=== PATIENT | female | born 1975 | race Caucasian/White ===

== ENCOUNTER 2018-02-09 06:07 | Day surgery (SDC) | payer MEDICARE, MEDICAID, SELFPAY ==
[2018-02-09 06:22] VITALS: BP 150/91; PULSE 80; RESP 18; TEMP 36.5; O2SAT 99
[2018-02-09] MEDS: Lidocaine 1% Pres-Free 5 ML VIAL (07:36)
--- NOTE | 2018-02-09 08:10 | W.PM.DSUDISC ---
Discharge Plan Disposition Patient Disposition: HOME Condition: Good Discharge Details Reason For Visit: ESRD Attending Provider: Tj Caldwell Primary Care Provider: Tita Yadav Home Meds and New Rx's Prescriptions: Continue ziprasidone HCl [Geodon] 80 MG capsule 80 mg PO DIRECTED RF: 0 trazodone 50 MG tablet 150 mg PO HS RF: 0 metoprolol succinate 50 MG tablet extended release 24 hr 12.5 mg PO BID RF: 0 pioglitazone [Actos] 45 MG tablet 15 mg PO DAILY RF: 0 aspirin [Aspirin Low-Strength] 81 MG tablet,chewable 81 mg PO DAILY RF: 0 ziprasidone HCl [Geodon] 40 MG capsule 40 mg PO DAILY AT 4 PM RF: 0 multivitamin [Daily Value] 1 EACH tablet 1 ea PO DAILY RF: 0 calcitriol 0.25 MCG capsule 0.25 mcg PO TID RF: 0 sevelamer carbonate [Renvela] 800 MG tablet 1 tab PO TID RF: 0 ziprasidone HCl [Geodon] 80 MG capsule 120 mg PO HS RF: 0 benztropine 0.5 MG tablet 0.5 mg PO BID RF: 0 ammonium lactate 225 GM lotion 1 applic Topical BID PRN PRNRF: 0 hydrocortisone [Proctozone-HC] 30 GM cream with perineal applicator 1 applic [place] BID PRN PRNRF: 0 docusate sodium [Colace] 100 MG capsule 100 mg PO BID RF: 0 omeprazole 20 MG capsule,delayed release(DR/EC) 20 mg PO DAILY RF: 0 B complex with C#20-folic acid [Renal Caps] 1 CAP capsule 1 mg PO DAILY RF: 0 simvastatin 40 mg Tablet 40 mg PO QPM RF: 0 bupropion HCl 100 mg Tablet 100 mg PO BID RF: 0 Discharge Instructions Additional Instructions: Dr. Tj Caldwell Post-Operative Discharge Instructions 1. Because there will be medication in your system for the next 24 hours, you may feel a little sleepy. Your coordination will be affected. Therefore: Do not drive or operate dangerous equipment for 24 hours. Do not drink alcohol beverages for 24 hours (not even beer). Plan to go home and rest for the day. Restrictions: No baths, you can shower. Let warm soapy water run over wound, then pat wound dry. Activity: The day of surgery spend most of the day resting in a comfortable bed or recliner. 2-3 times during the day get up and walk around the house. The day after surgery, or after your discharge, walk at least 3 times a day and spend increasing amounts of time walking and sitting up. If you are tired rest, but keep moving as able. Continue Incentive Spirometry at home if you were performing this therapy in the hospital. Diet: Resume home diet as tolerated. Start with a light diet, your appetite will improve with time. Drink at least 4-6 glasses of water per day to keep hydrated. Wound Care: Skin glue will wear off in 1-2 weeks You may cover the wound with a dry sterile dressing to keep clothing from rubbing against the wound. Continue all your regular medications unless directed otherwise. Call the office or the [facility] , If you have: Pain not controlled with pain medication. Nausea and vomiting. Temperature greater than 101 degrees Fahrenheit. Drainage from your wound that soaks through your dressing. *No more than 4000 milligrams of Tylenol in 24 hours. Narcotic pain medication can be constipating, if you have not had a bowel movement within 3 days use a laxative, I recommend Milk of Magnesia (MOM) 1oz. every 6 hrs until you have a bowel movement. I understand the above instructions and have no questions. Signature of Patient or Responsible Adult Escort Date/Time Name of Responsible Adult Escort Signature of Nurse Date/Time Revised 07/28/10 Referrals: Tj Caldwell DO [ [facility] STAFF PHYSICIAN] - (Dialysis center will call if follow up is needed) Activity:: Activity as Tolerated Diet:: As Tolerated Discharge Orders Discharge Orders: Discharge Order (Routine); Ordered 02/09/18 Ordered By: Tj Caldwell DS: Diagnosis Discharge Diagnosis (1) End stage renal disease: Status: Acute Asessment and Plan: Dialysis shunt in place (2) Encounter for dialysis catheter care: Status: Acute Asessment and Plan: Dialysis catheter removed
--- NOTE | 2018-02-09 08:13 | PDOC.DSDIS_ITS ---
Discharge Plan Disposition Patient Disposition: HOME Condition: Good Discharge Details Reason For Visit: ESRD Attending Provider: Tj Caldwell Primary Care Provider: Tita Yadav Home Meds and New Rx's Prescriptions: Continue ziprasidone HCl [Geodon] 80 MG capsule 80 mg PO DIRECTED RF: 0 trazodone 50 MG tablet 150 mg PO HS RF: 0 metoprolol succinate 50 MG tablet extended release 24 hr 12.5 mg PO BID RF: 0 pioglitazone [Actos] 45 MG tablet 15 mg PO DAILY RF: 0 aspirin [Aspirin Low-Strength] 81 MG tablet,chewable 81 mg PO DAILY RF: 0 ziprasidone HCl [Geodon] 40 MG capsule 40 mg PO DAILY AT 4 PM RF: 0 multivitamin [Daily Value] 1 EACH tablet 1 ea PO DAILY RF: 0 calcitriol 0.25 MCG capsule 0.25 mcg PO TID RF: 0 sevelamer carbonate [Renvela] 800 MG tablet 1 tab PO TID RF: 0 ziprasidone HCl [Geodon] 80 MG capsule 120 mg PO HS RF: 0 benztropine 0.5 MG tablet 0.5 mg PO BID RF: 0 ammonium lactate 225 GM lotion 1 applic Topical BID PRN PRNRF: 0 hydrocortisone [Proctozone-HC] 30 GM cream with perineal applicator 1 applic [place] BID PRN PRNRF: 0 docusate sodium [Colace] 100 MG capsule 100 mg PO BID RF: 0 omeprazole 20 MG capsule,delayed release(DR/EC) 20 mg PO DAILY RF: 0 B complex with C#20-folic acid [Renal Caps] 1 CAP capsule 1 mg PO DAILY RF: 0 simvastatin 40 mg Tablet 40 mg PO QPM RF: 0 bupropion HCl 100 mg Tablet 100 mg PO BID RF: 0 Discharge Instructions Additional Instructions: Dr. Tj Caldwell Post-Operative Discharge Instructions 1. Because there will be medication in your system for the next 24 hours, you may feel a little sleepy. Your coordination will be affected. Therefore: * Do not drive or operate dangerous equipment for 24 hours. * Do not drink alcohol beverages for 24 hours (not even beer). * Plan to go home and rest for the day. Restrictions: * No baths, you can shower. Let warm soapy water run over wound, then pat wound dry. Activity: * The day of surgery spend most of the day resting in a comfortable bed or recliner. 2-3 times during the day get up and walk around the house. * The day after surgery, or after your discharge, walk at least 3 times a day and spend increasing amounts of time walking and sitting up. If you are tired rest, but keep moving as able. * Continue Incentive Spirometry at home if you were performing this therapy in the hospital. Diet: * Resume home diet as tolerated. * Start with a light diet, your appetite will improve with time. * Drink at least 4-6 glasses of water per day to keep hydrated. Wound Care: * Skin glue will wear off in 1-2 weeks * You may cover the wound with a dry sterile dressing to keep clothing from rubbing against the wound. Continue all your regular medications unless directed otherwise. Call the office or the [facility] , If you have: * Pain not controlled with pain medication. * Nausea and vomiting. * Temperature greater than 101 degrees Fahrenheit. * Drainage from your wound that soaks through your dressing. *No more than 4000 milligrams of Tylenol in 24 hours. Narcotic pain medication can be constipating, if you have not had a bowel movement within 3 days use a laxative, I recommend Milk of Magnesia (MOM) 1oz. every 6 hrs until you have a bowel movement. I understand the above instructions and have no questions. _ Signature of Patient or Responsible Adult Escort Date/Time _ Name of Responsible Adult Escort _ Signature of Nurse Date/Time Revised 07/28/10 Referrals: Tj Caldwell DO [ [facility] STAFF PHYSICIAN] - (Dialysis center will call if follow up is needed) Activity:: Activity as Tolerated Diet:: As Tolerated Discharge Orders Discharge Orders: Discharge Order (Routine); Ordered 02/09/18 Ordered By: Tj Caldwell DS: Diagnosis Discharge Diagnosis (1) End stage renal disease: Status: Acute Asessment and Plan: Dialysis shunt in place (2) Encounter for dialysis catheter care: Status: Acute Asessment and Plan: Dialysis catheter removed
--- NOTE | 2018-02-09 08:14 | ROE_ITS ---
Date of service: 02/09/18 Time of Service: 08:13 Operative Note DATE OF PROCEDURE: 02/09/18 PRE-OP DIAGNOSIS: End-stage renal disease POST-OP DIAGNOSIS: same PROCEDURE: Removal of dialysis catheter SURGEON: Tj Caldwell ANESTHESIA: local (1% lidocaine with half percent Marcaine with epinephrine) ESTIMATED BLOOD LOSS: 1 PATHOLOGY: none sent COMPLICATIONS: None Patient was transported to: same day Patient's condition: stable Indications: 42-year-old woman with end-stage renal disease on hemodialysis. She initially was started on hemodialysis using permacath dialysis catheter. She has since had a dialysis shunt placed in her left upper arm and it is mature and being used for dialysis currently. She is presenting for removal of her dialysis catheter. The risk of the procedure has been discussed with her, and all questions answered to her satisfaction. Consents been obtained to proceed with dialysis catheter removed. Findings: Permacath dialysis catheter removed from the right chest catheter was intact at time of removal. Procedure Description: Patient was brought to the operating room, and positioned supine. Monitoring for telemetry, O2 saturation, and blood pressure. An appropriate timeout was taken reviewing the patient's identification, allergies, medications, procedure , and site. She was then repositioned with the torso flexed 30 degrees. The right upper chest was prepped with ChloraPrep and block draped in standard sterile fashion. A field block was established by infiltrating local around the skin insertion site for the catheter and following the catheters tunnel up to the clavicle. I began by gently dilating the skin opening using mosquito scissors for blunt dissection and sharp. The catheter cuff was was proximal to the skin opening. Again using the mosquito scissors for blunt and sharp dissection I circumferentially freed up the cuff from the surrounding tissue. I did make a 3 -4 mm perpendicular cut into the skin around the catheter for better exposure of the cuff. Once the cuff was circumferentially dissected, I applied gentle pressure and was able to free up the catheter from the tunnel and pull it out intact. I applied pressure to the dialysis catheter tunnel for several minutes inspected the skin exit site and there is no evidence of bleeding. I then placed skin affix skin glue over the wound. There are no complications during the case the patient tolerated very well she was brought to day surgery recovery area in good condition.
== END 2018-02-09 08:55 | disposition home or self-care (01) ==
PROVIDERS: PCP Nurse Practitioner Family; Visit Provider Surgery
PROC: (CPT 36590; principal; 2018-02-09 07:30)
DX: N18.6 End stage renal disease (principal); Z45.2 Encounter for adjustment and management of vascular access device; E11.9 Type 2 diabetes mellitus without complications; I10 Essential (primary) hypertension; F17.210 Nicotine dependence, cigarettes, uncomplicated
CPT/HCPCS: 36590

== ENCOUNTER 2018-03-10 09:14 | Emergency (ER) | payer MEDICARE, MEDICAID, SELFPAY ==
--- NOTE | 2018-03-10 09:15 | ED.GENADUL_ITS ---
Discharge Plan Disposition Patient Disposition: HOME Condition: Stable Discharge Details Chief Complaint: Orthopedic Clinical Impression: Foot injury Reason For Visit: FRANKI Primary Care Provider: Tita Yadav ED Provider: Berenice Velázquez Home Meds and New Rx's Prescriptions: Continue ziprasidone HCl [Geodon] 80 MG capsule 80 mg PO DIRECTED RF: 0 trazodone 50 MG tablet 150 mg PO HS RF: 0 metoprolol succinate 50 MG tablet extended release 24 hr 12.5 mg PO BID RF: 0 pioglitazone [Actos] 45 MG tablet 15 mg PO DAILY RF: 0 aspirin [Aspirin Low-Strength] 81 MG tablet,chewable 81 mg PO DAILY RF: 0 ziprasidone HCl [Geodon] 40 MG capsule 40 mg PO DAILY AT 4 PM RF: 0 multivitamin [Daily Value] 1 EACH tablet 1 ea PO DAILY RF: 0 calcitriol 0.25 MCG capsule 0.25 mcg PO TID RF: 0 sevelamer carbonate [Renvela] 800 MG tablet 1 tab PO TID RF: 0 ziprasidone HCl [Geodon] 80 MG capsule 120 mg PO HS RF: 0 benztropine 0.5 MG tablet 0.5 mg PO BID RF: 0 ammonium lactate 225 GM lotion 1 applic Topical BID PRN PRNRF: 0 hydrocortisone [Proctozone-HC] 30 GM cream with perineal applicator 1 applic [place] BID PRN PRNRF: 0 docusate sodium [Colace] 100 MG capsule 100 mg PO BID RF: 0 omeprazole 20 MG capsule,delayed release(DR/EC) 20 mg PO DAILY RF: 0 B complex with C#20-folic acid [Renal Caps] 1 CAP capsule 1 mg PO DAILY RF: 0 simvastatin 40 mg Tablet 40 mg PO QPM RF: 0 bupropion HCl 100 mg Tablet 100 mg PO BID RF: 0 Discharge Instructions Instructions: Contusion in Adults (ED) Additional Instructions: Please return immediately to the emergency department if you develop any new or worsening symptoms or if you become otherwise concerned. It is extremely important that you go directly to dialysis today and do not skip your dialysis treatment. Is also extremely important that you follow-up with your primary care doctor in 1-2 weeks. Referrals: Tita Yadav [Primary Care Provider] - Discharge Data Discharge Date/Time-TO BE ENTERED AT DEPARTURE: 03/10/18 10:52 Medical Decision Making Rolanda Pena is a 42 y/o with history of nonsignificant diabetes, hypertension , high cholesterol, end-stage renal disease on dialysis, schizophrenia who presented to the emergency department with foot pain after playing her foot into a wall accidentally last night. She has been walking at home since the injury with a mild amount of pain. On exam patient is well and nontoxic appearing. Normal work of breathing, lungs are clear to auscultation. There is no skin signs of trauma over the left foot. She has tenderness palpation over the left third and fourth MTP joints without edema. Foot is neurovascularly intact. Low suspicion for fracture, but will obtain x-ray. I had a lengthy discussion with patient regarding importance of attending dialysis as scheduled and the risk that she could or become critically ill from not going to dialysis as scheduled. Patient reports that she does not feel like sitting in a chair today and will go on Wednesday. Dialysis center was contacted, who reported that patient does have scheduled appointment for Wednesday, but that she also may go to dialysis today directly from the emergency department. Dialysis center reported that patient frequently skips dialysis appointments, although she did attend 2 days ago on Wednesday. Pt was again encouraged to go to dialysis today. Exam/history is not consistent with acute emergent volume overload or electrolyte/metabolic derangement. Patient has decision-making capacity. Lengthy discussion patient regarding return to emergency department cautions, importance of outpatient follow-up with her PCP, and importance of attending dialysis as scheduled. I did contact patient's PCPs office to let them know that patient has been intermittently missing dialysis, for further outpatient evaluation and possible home health or other intervention at home. They will see patient in follow-up. Medical Records Medical records reviewed: Yes I reviewed the patient's medical records. Imaging Data Radiologic Study: Attestation: I personally reviewed and interpreted this imaging study as follows: Radiologist's impression: Left foot per radiology: Possible old left fifth metatarsal fracture, no acute findings HPI General Mode of arrival: EMS . Date/Time Provider Initiated Documentation: 03/10/18 09:14 . Limitations to Documentation: no limitations . Information obtained by: patient, RN notes reviewed and old records reviewed . HPI Narrative: Rolanda Pena is a 42 y/o woman with [id number] diabetes, hypertension, high cholesterol, end-stage renal disease on dialysis, schizophrenia presenting to the emergency department with foot pain. Patient reports that last night she was walking when she banged lateral side of her left foot into a wall. After that she took a step and heard a crack. Patient has had mild continued pain in the distal aspect of her left foot. Patient denies any other injury or pain. She did not fall last night at the time of the injury. Patient denies shortness of breath, cough, fevers, vomiting, numbness/tingling, weakness, recent illness. She has been feeling well in her usual state of health. Patient has dialysis Wednesday, , Wednesday. She last had dialysis 2 days ago on 03/08/18, and was scheduled to attend dialysis this morning. Patient reports that she does not feel like going to dialysis today and will instead go on Wednesday. No recent illnesses. No recent travel. Has been taking her medications as prescribed. Related Data Home Medications Medication Instructions Recorded Confirmed aspirin [Aspirin Low-Strength] 81 mg PO DAILY tab-cap 09/19/12 03/10/18 metoprolol succinate 12.5 mg PO BID tab-cap 09/19/12 03/10/18 pioglitazone [Actos] 15 mg PO DAILY tab-cap 09/19/12 03/10/18 trazodone 150 mg PO HS tab-cap 09/19/12 03/10/18 ziprasidone HCl [Geodon] 40 mg PO DAILY AT 4 PM tab-cap 09/19/12 03/10/18 ziprasidone HCl [Geodon] 80 mg PO DIRECTED tab-cap 09/19/12 03/10/18 ammonium lactate 1 applic TOPICAL BID PRN PRN 04/18/17 03/10/18 benztropine 0.5 mg PO BID 04/18/17 03/10/18 docusate sodium [Colace] 100 mg PO BID 04/18/17 03/10/18 hydrocortisone [Proctozone-HC] 1 applic [place] BID PRN PRN 04/18/17 03/10/18 omeprazole 20 mg PO DAILY 04/18/17 03/10/18 ziprasidone HCl [Geodon] 120 mg PO HS 04/18/17 03/10/18 B complex with C#20-folic acid 1 mg PO DAILY 09/09/17 03/10/18 [Renal Caps] calcitriol 0.25 mcg PO TID 10/26/17 03/10/18 multivitamin [Daily Value] 1 ea PO DAILY 10/26/17 03/10/18 sevelamer carbonate [Renvela] 1 tab PO TID 10/26/17 03/10/18 bupropion HCl 100 mg PO BID 02/04/18 03/10/18 simvastatin 40 mg PO QPM 02/04/18 03/10/18 Allergies Allergy/AdvReac Type Severity Reaction Status Date / Time morphine Allergy Itching Unverified 03/10/18 09:27 ciprofloxacin [From Cipro] AdvReac Nausea Unverified 03/10/18 09:29 lisinopril AdvReac Unverified 03/10/18 09:27 BANANAS AdvReac Uncoded 03/10/18 09:27 CABBAGE AdvReac Uncoded 03/10/18 09:27 ORANGES AdvReac Uncoded 03/10/18 09:27 POLLEN AdvReac SLEEPY Uncoded 03/10/18 09:27 Review of Systems Review of Systems Constitutional: denies fevers Eyes: denies eye pain ENT: denies facial pain, dental pain, sore throat Cardiovascular: denies chest pain, edema Respiratory: denies SOB, cough GI: denies abdominal pain, vomiting, diarrhea : denies flank pain MSK: denies back pain, neck pain, arthralgias, reports foot pain Skin: denies rash Neuro: denies headaches, lightheadedness, weakness PFSH Surgical procedure, elective (Resolved 02/09/18) Auditory hallucinations CRF Diabetes II, w/ unspec. complications Epilepsy, Unspec., not intractable FX greater tuberosity humerus, L shoulder HX of DVT Hyperlipidemia Hypertention Kidney Chronic Disease, Unspecified Morbid obesity Other Specified Developmental Delay Proteinuria Psoriasis, other Recurrent hyperkalemia Recurring Depression Psychosis Tobacco abuse disorder Nephrectomy RUSS BSO Medical History Surgical procedure, elective (Resolved 02/09/18) Auditory hallucinations CRF Diabetes II, w/ unspec. complications Epilepsy, Unspec., not intractable FX greater tuberosity humerus, L shoulder HX of DVT Hyperlipidemia Hypertention Kidney Chronic Disease, Unspecified Morbid obesity Other Specified Developmental Delay Proteinuria Psoriasis, other Recurrent hyperkalemia Recurring Depression Psychosis Tobacco abuse disorder Social History Smoking/Tobacco Use Status: Current every day Surgical History Nephrectomy RUSS BSO Social History Smoking/Tobacco Use Status: Current every day Exam Narrative Exam Narrative: Constitutional: well and [id number], pleasant, conversing normally HENT: head atraumatic, normocephalic normal inspection, mucous membranes moist Eyes: conjunctiva normal, sclera normal, pupils 3mm b/l Neck: no stridor, normal ROM, trachea midline Chest: normal inspection Resp: normal work of breathing, LCTAB Cardio: normal rate, normal rhythm, no murmur appreciated Back: normal inspection, no rash Skin: warm, dry, normal color, no rash Neuro: alert&Ox3, grossly non-focal, normal tone Ext: +1 pitting edema b/l, Pt reports as chronic and unchanged, mild TTP plantar aspect left 3rd, 4th MTP joint, feet WWP, DP pulses intact, no skin signs of trauma, ranging toes normally Psych: normal mood, normal affect, normal behavior
[2018-03-10 09:17] VITALS: BP 127/57; PULSE 75; RESP 17; TEMP 37; O2SAT 94
--- NOTE | 2018-03-10 10:16 | DI.RAD_ITS ---
SYMPTOM/DIAGNOSIS: TRAUMA, LEFT FOOT PAIN LEFT FOOT: There is slight deformity of the distal shaft of the 5th metatarsal which has the appearance of an old healed fracture. No acute fracture or dislocation is seen. The joint spaces are well maintained. Vascular calcifications are seen. There are small heel spurs. IMPRESSION: Old fracture of the 5th metatarsal. No acute abnormality.
[2018-03-10 10:47] VITALS: PULSE 72; RESP 16; TEMP 37.2
== END 2018-03-10 10:52 | disposition home or self-care (01) ==
LOC: ER 11:04
PROVIDERS: Emergency Provider Student in an Organized Health Care Education/Training Program; PCP Nurse Practitioner Family
DX: M79.672 Pain in left foot (principal); I12.0 Hypertensive chronic kidney disease with stage 5 chronic kidney disease or end stage renal disease; E11.9 Type 2 diabetes mellitus without complications; N18.6 End stage renal disease; Z99.2 Dependence on renal dialysis
CPT/HCPCS: 99283; 73630; 99282

== ENCOUNTER 2018-05-20 10:58 | Outpatient (CLI) | payer MEDICARE, MEDICAID, SELFPAY ==
[2018-05-20 12:04] LABS: Abs Immature Grans 0.07 k/cumm (0.0-0.09); Absolute Basophil Count 0.05 k/cumm (0.0-0.2); Absolute Eosinophil Count 0.23 k/cumm (0.0-0.7); Absolute Lymphocyte Count 1.76 k/cumm (1.2-3.4); Absolute Monocyte Count 0.72 k/cumm (0.11-0.7); Basophils % 0.6; Eosinophils % 2.9; HCT 36.1 % (36.0-46.0); Immature Grans % 0.9; Lymphocytes % 22.2; Mean Corp. HGB Concentration 33.2 g/dL (32.0-36.0); Mean Corpuscular Hemoglobin 34.1 pg (27.0-33.0); Mean Corpuscular Volume 102.6 fL (80-95); Mean Platelet Volume 9.4 fL (8.0-11.0); Monocytes % 9.1; Neutrophils % 64.3; Platelet Count 203 x1000/uL (130-400); RBC 3.52 m/cumm (4.00-5.20); RBC Distribution Width 14.1 % (11.7-14.6); White Blood Cell Count 7.93 k/cumm (4.4-10.8)
[2018-05-20 12:19] LABS: Hemoglobin A1C 7.2 % (4.5-6.2)
[2018-05-20 13:31] LABS: ALT 28 U/L (12-78); AST 29 U/L (15-37); Albumin 2.8 g/dL (3.4-5.0); Alkaline Phosphatase 149 U/L (46-116); Anion Gap 6.1 mmol/L (3-11); BUN 23 mg/dL (7-18); Bilirubin, Total 0.3 mg/dL (0.2-1.0); CO2 32.9 mmol/L (21.0-32.0); Calcium 8.7 mg/dL (8.5-10.1); Chloride 92 mmol/L (98-107); Cholesterol 145 mg/dL (50-200); Estimated GFR 12.06 (mL/min/1.73m2); Glucose 235 mg/dL (70-100); HDL Cholesterol 61 mg/dL (40-60); LDL CHOLESTEROL 48 mg/dL (<100); Potassium 4.5 mmol/L (3.5-5.1); Sodium 131 mmol/L (136-145); TSH 1.14 uIU/mL (0.358-3.74); Total Protein 6.7 g/dL (6.4-8.2); Triglyceride 222 mg/dL (30-150)
[2018-05-20 13:42] LABS: CREATININE 4.03 mg/dL (0.55-1.02)
== END 2018-05-20 11:18 ==
PROVIDERS: PCP Nurse Practitioner Family; Visit Provider Nurse Practitioner Psychiatric/Mental Health
DX: F25.1 Schizoaffective disorder, depressive type (principal); I10 Essential (primary) hypertension; E11.9 Type 2 diabetes mellitus without complications
CPT/HCPCS: 36415; 80053; 80061; 83721; 83036; 84443; 85025

== ENCOUNTER 2018-07-20 08:21 | Outpatient (CLI) | payer MEDICARE, MEDICAID, SELFPAY ==
--- NOTE | 2018-07-20 08:09 | DI.RAD_ITS ---
SYMPTOMS/DIAGNOSIS: EVALUATE LEFT FOOT PAIN, 4TH AND 5TH TOES LEFT FOOT: Healing fractures of the left 2nd and 3rd metatarsals are identified. There is an apparent minimally displaced subacute fracture involving the distal diaphysis of the 4th metatarsal.
== END 2018-07-20 08:41 ==
PROVIDERS: PCP Nurse Practitioner Family; Referring Provider Nurse Practitioner Family; Visit Provider Student in an Organized Health Care Education/Training Program
DX: S92.342A Displaced fracture of fourth metatarsal bone, left foot, initial encounter for closed fracture; S92.332A Displaced fracture of third metatarsal bone, left foot, initial encounter for closed fracture; S92.322A Displaced fracture of second metatarsal bone, left foot, initial encounter for closed fracture; E11.22 Type 2 diabetes mellitus with diabetic chronic kidney disease; N18.6 End stage renal disease; Z99.2 Dependence on renal dialysis; W22.8XXA Striking against or struck by other objects, initial encounter
CPT/HCPCS: 99203; 99213; L3260; 73630

== ENCOUNTER 2018-08-17 09:47 | Outpatient (CLI) | payer MEDICARE, MEDICAID, SELFPAY ==
--- NOTE | 2018-08-17 09:45 | DI.RAD_ITS ---
SYMPTOM/DIAGNOSIS: F/U FX LEFT FOOT: Three views were obtained and again show healing fractures of the second through fourth metatarsals with no gross interval change in alignment of the fracture fragments in comparison with the examination of 07/20.
== END 2018-08-17 10:07 ==
PROVIDERS: PCP Nurse Practitioner Family; Referring Provider Nurse Practitioner Family; Visit Provider Student in an Organized Health Care Education/Training Program
DX: M79.672 Pain in left foot (principal); S92.322D Displaced fracture of second metatarsal bone, left foot, subsequent encounter for fracture with routine healing; S92.332D Displaced fracture of third metatarsal bone, left foot, subsequent encounter for fracture with routine healing; S92.342D Displaced fracture of fourth metatarsal bone, left foot, subsequent encounter for fracture with routine healing; X58.XXXD Exposure to other specified factors, subsequent encounter
CPT/HCPCS: 99212; 73630

== ENCOUNTER 2018-09-21 09:58 | Outpatient (CLI) | payer MEDICARE, MEDICAID, SELFPAY ==
--- NOTE | 2018-09-21 09:55 | DI.RAD_ITS ---
SYMPTOMS/DIAGNOSIS: F/U FRACTURE LEFT FOOT: Progressive healing of fractures of the second, third and fourth metatarsals is demonstrated with no change in alignment. There is nothing to suggest that healing is not progressing satisfactorily at the present time.
== END 2018-09-21 10:18 ==
PROVIDERS: PCP Nurse Practitioner Family; Referring Provider Nurse Practitioner Family; Visit Provider Student in an Organized Health Care Education/Training Program
DX: M79.672 Pain in left foot (principal); S92.322A Displaced fracture of second metatarsal bone, left foot, initial encounter for closed fracture; S92.332A Displaced fracture of third metatarsal bone, left foot, initial encounter for closed fracture; S92.342A Displaced fracture of fourth metatarsal bone, left foot, initial encounter for closed fracture; X58.XXXA Exposure to other specified factors, initial encounter; I12.9 Hypertensive chronic kidney disease with stage 1 through stage 4 chronic kidney disease, or unspecified chronic kidney disease; N18.9 Chronic kidney disease, unspecified; E11.22 Type 2 diabetes mellitus with diabetic chronic kidney disease
CPT/HCPCS: 99213; 73630

== ENCOUNTER 2018-12-17 08:07 | Emergency (ER) | payer MEDICARE, MEDICAID, SELFPAY ==
[2018-12-17] VITALS (11 sets, daily range): BP systolic 113–135; BP diastolic 49–63; PULSE 67–74; RESP 13–29; TEMP 36.4–36.6; O2SAT 98–99
--- NOTE | 2018-12-17 08:25 | W.ED.GENAD ---
Discharge Plan Discharge Details Chief Complaint: Vascular Primary Care Provider: Kitty Real ED Provider: Manas Velázquez Home Meds and New Rx's Prescriptions: No Action ziprasidone HCl [Geodon] 80 MG capsule 80 mg PO DIRECTED RF: 0 trazodone 50 MG tablet 150 mg PO HS RF: 0 metoprolol succinate 50 MG tablet extended release 24 hr 12.5 mg PO BID RF: 0 pioglitazone [Actos] 45 MG tablet 15 mg PO DAILY RF: 0 aspirin [Aspirin Low-Strength] 81 MG tablet,chewable 81 mg PO DAILY RF: 0 ziprasidone HCl [Geodon] 40 MG capsule 40 mg PO DAILY AT 4 PM RF: 0 multivitamin [Daily Value] 1 EACH tablet 1 ea PO DAILY RF: 0 calcitriol 0.25 MCG capsule 0.25 mcg PO TID RF: 0 sevelamer carbonate [Renvela] 800 MG tablet 1 tab PO TID RF: 0 ziprasidone HCl [Geodon] 80 MG capsule 120 mg PO HS RF: 0 benztropine 0.5 MG tablet 0.5 mg PO BID RF: 0 ammonium lactate 225 GM lotion 1 applic Topical BID PRN PRNRF: 0 hydrocortisone [Proctozone-HC] 30 GM cream with perineal applicator 1 applic [place] BID PRN PRNRF: 0 docusate sodium [Colace] 100 MG capsule 100 mg PO BID RF: 0 omeprazole 20 MG capsule,delayed release(DR/EC) 20 mg PO DAILY RF: 0 Renal Caps 1 CAP capsule 1 mg PO DAILY RF: 0 simvastatin 40 mg Tablet 40 mg PO QPM RF: 0 bupropion HCl 100 mg Tablet 100 mg PO BID RF: 0 Discharge Data Discharge Date/Time-TO BE ENTERED AT DEPARTURE: 12/17/18 09:08 Medical Decision Making 8:20 --43-year-old female with end-stage renal disease on hemodialysis, sent from dialysis clinic with graft access infiltration, 1 L of saline infiltrated into soft tissue of left upper extremity and left anterior chest, with concern for chest discomfort. I suspect her chest discomfort secondary to the heavy volume of fluid in the soft tissue of her left anterior chest and left upper extremity. 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 --Screening ECG was performed by nursing and reviewed and interpreted by me: Sinus rhythm 71 bpm, normal axis, no STEMI, nondiagnostic. 8:35 -- Spoke with Sunshine (nephrology at [facility]) and Dr. Bruce () will accept patient in transfer. Labs pending at time of transfer. HPI General Mode of arrival: ambulatory. Date/Time Provider Initiated Documentation: 12/17/18 08:15. Limitations to Documentation: no limitations. Information obtained by: patient. HPI Narrative: 43-year-old female with end-stage renal disease on hemodialysis through left upper extremity graft, here after being sent from dialysis with complaint of chest discomfort. Currently patient was feeling well, having dialysis as usual, she completed 2 hours of dialysis, she was then receiving a liter of saline through graft access and access infiltrated. It appears she received a large volume of fluid into her soft tissue left upper extremity and into her left anterior chest. When this occurred, she developed chest discomfort in the area. She specifically notes it feels swollen. Symptoms are moderate. No modifiers. There is also a note that she was hypotensive at some point post dialysis. Apparently there was an issue with mild infiltration during dialysis a couple weeks ago. Related Data Home Medications Medication Instructions Recorded Confirmed aspirin [Aspirin Low-Strength] 81 mg PO DAILY tab-cap 09/19/12 12/17/18 metoprolol succinate 12.5 mg PO BID tab-cap 09/19/12 12/17/18 pioglitazone [Actos] 15 mg PO DAILY tab-cap 09/19/12 12/17/18 trazodone 150 mg PO HS tab-cap 09/19/12 12/17/18 ziprasidone HCl [Geodon] 40 mg PO DAILY AT 4 PM tab-cap 09/19/12 09/21/18 ziprasidone HCl [Geodon] 80 mg PO DIRECTED tab-cap 09/19/12 09/21/18 ammonium lactate 1 applic TOPICAL BID PRN PRN 04/18/17 12/17/18 benztropine 0.5 mg PO BID 04/18/17 12/17/18 docusate sodium [Colace] 100 mg PO BID 04/18/17 12/17/18 hydrocortisone [Proctozone-HC] 1 applic OK BID PRN PRN 04/18/17 09/21/18 omeprazole 20 mg PO DAILY 04/18/17 09/21/18 ziprasidone HCl [Geodon] 120 mg PO HS 04/18/17 09/21/18 Renal Caps 1 mg PO DAILY 09/09/17 12/17/18 calcitriol 0.25 mcg PO TID 10/26/17 12/17/18 multivitamin [Daily Value] 1 ea PO DAILY 10/26/17 12/17/18 sevelamer carbonate [Renvela] 1 tab PO TID 10/26/17 12/17/18 bupropion HCl 100 mg PO BID 02/04/18 12/17/18 simvastatin 40 mg PO QPM 02/04/18 09/21/18 Allergies Allergy/AdvReac Type Severity Reaction Status Date / Time morphine Allergy Itching Unverified 12/17/18 08:50 ciprofloxacin [From Cipro] AdvReac Nausea Unverified 12/17/18 08:50 lisinopril AdvReac Unverified 12/17/18 08:50 BANANAS AdvReac Uncoded 12/17/18 08:50 CABBAGE AdvReac Uncoded 12/17/18 08:50 ORANGES AdvReac Uncoded 12/17/18 08:50 POLLEN AdvReac SLEEPY Uncoded 12/17/18 08:50 General Stated Complaint: Vascular BRENNA: 3 Review of Systems Review of Systems ROS Unobtainable: All systems reviewed & are unremarkable except as noted in HPI and below Constitutional Constitutional: Denies fever(s) Cardiovascular Cardiovascular: Reports as per HPI and Denies dyspnea Respiratory Respiratory: Denies dyspnea PFSH Medical History Auditory hallucinations CRF Diabetes II, w/ unspec. complications Epilepsy, Unspec., not intractable FX greater tuberosity humerus, L shoulder 09/13 HX of DVT 2005 Hyperlipidemia Hypertention Kidney Chronic Disease, Unspecified Morbid obesity Other Specified Developmental Delay Proteinuria Psoriasis, other Recurrent hyperkalemia Recurring Depression Psychosis Surgical procedure, elective (Resolved 02/09/18) dr owens, port-a-cath removal (ESRD) Tobacco abuse disorder Surgical History Nephrectomy Left, 2000 [facility] Social History Smoking/Tobacco Use Status: Current every day Tobacco Type: cigarettes Years smoked: 34 Alcohol Intake: never Drug use: Never Substance use type: does not use Do you feel safe at home: Yes Do you feel safe in your relationship?: Yes Exam Const General: cooperative and no acute distress HENMT Mouth: moist mucous membranes Neck Neck: trachea midline and supple Chest Chest: tenderness (with swelling soft tissue Lt upper chest) Resp Auscultation: clear to auscultation bilaterally, no rales, no rhonchi and no wheezes Cardio Jugular venous pressure: no JVD Rate: regular rate and not tachycardic Rhythm: regular rhythm GI Palpation: soft, not firm, no guarding, not rigid and nontender Skin General skin exam: ecchymosis (mild just proximal to graft access site LUE) Neuro General: alert, awake and tone normal Extrem General: edema Laterality: left (swelling soft tissue proximal LUE) Psych Appearance: grossly normal Mental Status: mental status grossly normal Speech and Movement: speech and movement normal Course Vital Signs Vital signs: Vital Signs Temperature 36.6 C 12/17/18 08:05 Pulse 74 12/17/18 08:05 Respiratory Rate 20 12/17/18 08:05 Blood Pressure 124/49 L 12/17/18 08:05 Temperature 36.6 C 12/17/18 08:05 Temperature Source Skin 12/17/18 08:05 Pulse 74 12/17/18 08:05 Respiratory Rate 20 12/17/18 08:05 Blood Pressure 124/49 L 12/17/18 08:05 Blood Pressure Position Supine 12/17/18 08:05 Oxygen Delivery Method Room Air 12/17/18 08:05 Oxygen Flow Rate 0 12/17/18 08:05 Pain Level 10 12/17/18 08:05 Comment 12/17/18 08:05
== END 2018-12-17 09:08 ==
LOC: ER 09:04
PROVIDERS: Emergency Provider Student in an Organized Health Care Education/Training Program; PCP Nurse Practitioner Family
DX: T82.41XA Breakdown (mechanical) of vascular dialysis catheter, initial encounter (principal); R07.9 Chest pain, unspecified; L98.6 Other infiltrative disorders of the skin and subcutaneous tissue; N18.6 End stage renal disease; I12.9 Hypertensive chronic kidney disease with stage 1 through stage 4 chronic kidney disease, or unspecified chronic kidney disease; Z99.2 Dependence on renal dialysis; E11.22 Type 2 diabetes mellitus with diabetic chronic kidney disease
CPT/HCPCS: 36415; 80053; 93005; 99285; 83735; 84484; 85025; 93010

== ENCOUNTER 2018-12-28 09:49 | Outpatient (CLI) | payer MEDICARE, MEDICAID, SELFPAY ==
--- NOTE | 2018-12-28 10:01 | DI.RAD_ITS ---
EXAM: XR FOOT RT COMPLETE INDICATION: PAIN IN RIGHT FOOT, M79.671. TECHNIQUE: 2D digital imaging was performed. FINDINGS: Healed fracture of the 2nd, 3rd and 4th metatarsals. No acute findings.
== END 2018-12-28 10:09 ==
PROVIDERS: PCP Nurse Practitioner Family; Visit Provider Podiatrist Foot & Ankle Surgery
DX: M79.671 Pain in right foot (principal); Z87.81 Personal history of (healed) traumatic fracture
CPT/HCPCS: 73630

== ENCOUNTER 2019-02-08 13:27 | Emergency (ER) | payer MEDICARE, MEDICAID, SELFPAY ==
[2019-02-08 13:29] VITALS: BP 137/77; PULSE 79; RESP 16; TEMP 36.7; O2SAT 95
--- NOTE | 2019-02-08 14:06 | DI.RAD_ITS ---
EXAM: XR FOOT RT COMPLETE CLINICAL HISTORY: R heel/mid foot pain,? Spur, fx, foreign body TECHNIQUE: Three views were obtained. COMPARISON: XR FOOT RT COMPLETE from 12/28/2018 FINDINGS: There are apparent old healed fractures of 2nd through 4th metatarsal mid shafts. There are mild deg enerative changes seen throughout. No fracture or other acute finding. IMPRESSION: No evidence of acute process
--- NOTE | 2019-02-08 14:07 | ED.GENADUL_ITS ---
Discharge Plan Disposition Patient Disposition: HOME Condition: Stable Discharge Details Chief Complaint: Orthopedic Clinical Impression: Foot pain, right Primary Care Provider: Kitty Real ED Provider: Gabrielle Delgado Home Meds and New Rx's Prescriptions: Continued ziprasidone HCl [Geodon] 80 MG capsule 80 mg PO DIRECTED RF: 0 trazodone 50 MG tablet 150 mg PO HS RF: 0 metoprolol succinate 50 MG tablet extended release 24 hr 12.5 mg PO BID RF: 0 pioglitazone [Actos] 45 MG tablet 15 mg PO DAILY RF: 0 aspirin [Aspirin Low-Strength] 81 MG tablet,chewable 81 mg PO DAILY RF: 0 ziprasidone HCl [Geodon] 40 MG capsule 40 mg PO DAILY AT 4 PM RF: 0 multivitamin [Daily Value] 1 EACH tablet 1 ea PO DAILY RF: 0 calcitriol 0.25 MCG capsule 0.25 mcg PO TID RF: 0 sevelamer carbonate [Renvela] 800 MG tablet 1 tab PO TID RF: 0 metformin 1,000 mg Tablet RF: 0 ziprasidone HCl [Geodon] 80 MG capsule 120 mg PO HS RF: 0 benztropine 0.5 MG tablet 0.5 mg PO BID RF: 0 ammonium lactate 225 GM lotion 1 applic Topical BID PRN PRNRF: 0 hydrocortisone [Proctozone-HC] 30 GM cream with perineal applicator 1 applic [place] BID PRN PRNRF: 0 docusate sodium [Colace] 100 MG capsule 100 mg PO BID RF: 0 omeprazole 20 MG capsule,delayed release(DR/EC) 20 mg PO DAILY RF: 0 Renal Caps 1 CAP capsule 1 mg PO DAILY RF: 0 simvastatin 40 mg Tablet 40 mg PO QPM RF: 0 bupropion HCl 100 mg Tablet 100 mg PO BID RF: 0 Discharge Instructions Instructions: Plantar Fasciitis Exercises (GEN), Plantar Fasciitis (ED), Arthralgia (ED) Additional Instructions: Your x-ray did not note any new fractures or foreign bodies. Your symptoms may be consistent with plantar fasciitis but this diagnosis would require further evaluation by embedded hardware engineer. You were given information regarding plantar fasciitis. Apply ice to the affected area several times daily for 20 minutes at a time. Use a cane to help with weightbearing and ambulation. Wear the Arturo wrap to help with compression and pain. Follow-up with your scheduled appointment with your embedded hardware engineer on Wednesday. Return to the emergency department if you develop any worsening or new concerning symptoms of fever, redness, swelling. Discharge Data Discharge Date/Time-TO BE ENTERED AT DEPARTURE: 02/08/19 15:34 Discharge Physician: Gabrielle Delgado Medical Decision Making 43yo F w/ a h/o ESRD on dialysis, DM, DVT, HLD, schizophrenia, developmental delay, migraines w/ R mid foot pain since yesterday. Triage note stated that she had her foot on a step today but she denies this to me. She denies any known injury. She states the pain is in her right plantar midfoot and heel. She has chronically thick scaling epidermis to bilateral lower extremities which may be associated with her end-stage renal disease. She has tenderness to palpation of her right plantar midfoot and heel without evidence of trauma, infection or obvious foreign body or open wounds. She is neurovascularly intact. A right foot x-ray was obtained to rule out fracture versus foreign body which was negative. There did appear to be a possible heel spur which can be contributing to her pain. Also discussed that patient's symptoms could be due to plantar fasciitis. She has an appointment with her embedded hardware engineer on Wednesday whi ch she is advised to discuss this with him. She is encouraged to return to the ER with any worsening or new concerning symptoms. Medical Records Medical records reviewed: Yes I reviewed the patient's medical records. HPI General Mode of arrival: ambulatory . Date/Time Provider Initiated Documentation: 02/08/19 13:51 . Limitations to Documentation: no limitations . Information obtained by: patient . HPI Narrative: Patient is a 43-year-old female with a history of end-stage renal disease on dialysis, obesity, diabetes, hypertension, hyperlipidemia, migraines, schizophrenia and seizures who presents with right foot pain since yesterday. Patient states the pain is in the arch and heel of her foot. She denies any known injury. Triage note states she hit her foot on a step today but she denies this to me. She denies any fever, body aches, known foreign body. Related Data Home Medications Medication Instructions Recorded Confirmed aspirin [Aspirin Low-Strength] 81 mg PO DAILY tab-cap 09/19/12 02/08/19 metoprolol succinate 12.5 mg PO BID tab-cap 09/19/12 02/08/19 pioglitazone [Actos] 15 mg PO DAILY tab-cap 09/19/12 02/08/19 trazodone 150 mg PO HS tab-cap 09/19/12 02/08/19 ziprasidone HCl [Geodon] 40 mg PO DAILY AT 4 PM tab-cap 09/19/12 02/08/19 ziprasidone HCl [Geodon] 80 mg PO DIRECTED tab-cap 09/19/12 02/08/19 ammonium lactate 1 applic TOPICAL BID PRN PRN 04/18/17 02/08/19 benztropine 0.5 mg PO BID 04/18/17 02/08/19 docusate sodium [Colace] 100 mg PO BID 04/18/17 02/08/19 hydrocortisone [Proctozone-HC] 1 applic ME BID PRN PRN 04/18/17 02/08/19 omeprazole 20 mg PO DAILY 04/18/17 02/08/19 ziprasidone HCl [Geodon] 120 mg PO HS 04/18/17 02/08/19 Renal Caps 1 mg PO DAILY 09/09/17 02/08/19 calcitriol 0.25 mcg PO TID 10/26/17 02/08/19 multivitamin [Daily Value] 1 ea PO DAILY 10/26/17 02/08/19 sevelamer carbonate [Renvela] 1 tab PO TID 10/26/17 02/08/19 bupropion HCl 100 mg PO BID 02/04/18 02/08/19 simvastatin 40 mg PO QPM 02/04/18 09/21/18 metformin mg 02/08/19 Allergies Allergy/AdvReac Type Severity Reaction Status Date / Time morphine Allergy Itching Unverified 02/08/19 13:34 ciprofloxacin [From Cipro] AdvReac Nausea Unverified 02/08/19 13:34 lisinopril AdvReac Unverified 02/08/19 13:34 BANANAS AdvReac Uncoded 02/08/19 13:34 CABBAGE AdvReac Uncoded 02/08/19 13:34 ORANGES AdvReac Uncoded 02/08/19 13:34 POLLEN AdvReac SLEEPY Uncoded 02/08/19 13:34 General Stated Complaint: Orthopedic BRENNA: 4 Review of Systems All systems reviewed & are unremarkable except as noted in HPI and below Constitutional Constitutional: Reports as per HPI, Denies chills and Denies fever(s) Eyes Eyes: Denies blurry vision ENT Ears, Nose, Mouth, and Throat: Denies dizziness, Denies sore throat and Denies throat swelling Cardiovascular Cardiovascular: Denies chest pain and Denies dyspnea Respiratory Respiratory: Denies cough and Denies dyspnea Gastrointestinal Gastrointestinal: Denies abdominal pain, Denies diarrhea and Denies vomiting Genitourinary Genitourinary: Denies hematuria and Denies dysuria Musculoskeletal Musculoskeletal: Denies back pain and Denies numbness Comments: Right foot pain Integumentary/Breasts Skin/Breast: Denies lesions and Denies rash Neurologic Neurologic: Denies dizziness, Denies focal weakness and Denies numbness Allergic/Immunologic Allergic/Immunologic: Denies throat swelling [facility] Medical History Auditory hallucinations CRF Diabetes II, w/ unspec. complications Epilepsy, Unspec., not intractable FX greater tuberosity humerus, L shoulder 09/13 HX of DVT 2005 Hyperlipidemia Hypertention Kidney Chronic Disease, Unspecified Morbid obesity Other Specified Developmental Delay Proteinuria Psoriasis, other Recurrent hyperkalemia Recurring Depression Psychosis Surgical procedure, elective (Resolved 02/09/18) dr owens, port-a-cath removal (ESRD) Tobacco abuse disorder Surgical History Nephrectomy Left, [address] [facility] Social History Smoking/Tobacco Use Status: Current every day Tobacco Type: cigarettes Years smoked: 34 Alcohol Intake: never Drug use: Never Substance use type: does not use Do you feel safe at home: Yes Do you feel safe in your relationship?: Yes Exam Const General: cooperative, healthy appearing and no acute distress [facility] Head: normal to inspection Mouth: oral mucosae normal Eyes General: appearance normal, both eyes and all related structures Neck Neck: normal visual inspection Resp Effort & Inspection: normal respiratory effort and able to speak in complete sentences Cardio Rate: regular rate Skin General skin exam: no rashes or lesions noted Neuro General: alert, awake and oriented x3 Motor: muscle tone normal throughout Extrem Ankle/foot/toe images: 1. Tenderness to palpation of plantar midfoot and heel. There is no palpable foreign body, crepitus, erythema, edema, ecchymosis or open wounds. Other: Right DP/PT pulses intact. There is no medial or lateral malleolus edema, ecchymosis or tenderness. There is no deformity. There is what appears to be chronic thickening and induration of the epidermis and scaling of the lower extremities bilaterally without evidence of cellulitis, trauma or open wounds. Full range of motion of bilateral lower extremities without pain with range of motion. Psych Appearance: grossly normal Affect: normal affect Course Vital Signs Vital signs: Vital Signs Temperature 98.1 F 02/08/19 13:29 Pulse 79 02/08/19 13:29 Respiratory Rate 16 02/08/19 13:29 Blood Pressure 137/77 02/08/19 13:29 Pulse Oximetry 95 02/08/19 13:29 Temperature 98.1 F 02/08/19 13:29 Temperature Source Temporal Artery Scan 02/08/19 13:29 Pulse 79 02/08/19 13:29 Respiratory Rate 16 02/08/19 13:29 Respiratory Effort 02/08/19 13:33 Blood Pressure 137/77 02/08/19 13:29 Pulse Oximetry 95 02/08/19 13:29 Oxygen Delivery Method Room Air 02/08/19 13:29 Oxygen Flow Rate 0 02/08/19 13:29 Pain Level 7 02/08/19 13:44
[2019-02-08] MEDS: Acetaminophen 500 MG TAB 1000 MG PO (14:16)
[2019-02-08 15:14] VITALS: BP 149/49; PULSE 78; RESP 15; TEMP 36.6; O2SAT 94
== END 2019-02-08 15:34 | disposition home or self-care (01) ==
PROVIDERS: Emergency Provider Physician Assistant; PCP Nurse Practitioner Family
DX: M79.671 Pain in right foot (principal)
CPT/HCPCS: 99283; 73630; 99282

== ENCOUNTER 2019-02-14 05:33 | Emergency (ER) | payer MEDICARE, MEDICAID, SELFPAY ==
[2019-02-14] VITALS (14 sets, daily range): BP systolic 129–168; BP diastolic 58–82; PULSE 62–69; RESP 14–25; TEMP 36.3; O2SAT 90–96
--- NOTE | 2019-02-14 05:41 | ED.GENADUL_ITS ---
Discharge Plan Disposition Patient Disposition: HOME Condition: Stable Discharge Details Chief Complaint: RespSymp Clinical Impression: Shortness of breath, Bilateral leg pain Primary Care Provider: Kitty Real ED Provider: Gabrielle Delgado Home Meds and New Rx's Prescriptions: Continued ziprasidone HCl [Geodon] 80 MG capsule 80 mg PO DIRECTED RF: 0 trazodone 50 MG tablet 150 mg PO HS RF: 0 metoprolol succinate 50 MG tablet extended release 24 hr 12.5 mg PO BID RF: 0 pioglitazone [Actos] 45 MG tablet 15 mg PO DAILY RF: 0 aspirin [Aspirin Low-Strength] 81 MG tablet,chewable 81 mg PO DAILY RF: 0 ziprasidone HCl [Geodon] 40 MG capsule 40 mg PO DAILY AT 4 PM RF: 0 multivitamin [Daily Value] 1 EACH tablet 1 ea PO DAILY RF: 0 calcitriol 0.25 MCG capsule 0.25 mcg PO TID RF: 0 sevelamer carbonate [Renvela] 800 MG tablet 1 tab PO BID RF: 0 metformin 1,000 mg Tablet 1,000 mg PO BID RF: 0 ziprasidone HCl [Geodon] 80 MG capsule 120 mg PO HS RF: 0 benztropine 0.5 MG tablet 0.5 mg PO BID RF: 0 ammonium lactate 225 GM lotion 1 applic Topical BID PRN PRNRF: 0 hydrocortisone [Proctozone-HC] 30 GM cream with perineal applicator 1 applic UT BID PRN PRNRF: 0 docusate sodium [Colace] 100 MG capsule 100 mg PO BID RF: 0 omeprazole 20 MG capsule,delayed release(DR/EC) 20 mg PO DAILY RF: 0 Renal Caps 1 CAP capsule 1 mg PO DAILY RF: 0 simvastatin 40 mg Tablet 40 mg PO QPM RF: 0 bupropion HCl 100 mg Tablet 100 mg PO BID RF: 0 Discharge Instructions Instructions: Dyspnea (ED), Leg Pain (ED) Additional Instructions: Go directly to dialysis for your regularly scheduled session today. Follow-up with your primary care doctor within the next week. Return to the emergency department if you develop any worsening or new concerning symptoms. Discharge Data Discharge Date/Time-TO BE ENTERED AT DEPARTURE: 02/14/19 10:05 Discharge Physician: Gabrielle Delgado Medical Decision Making <Mega Shah MD - Last Filed: 02/14/19 22:49> Patient here with complaint of shortness of breath without associated chest pain for the last week. Also complaining of intermittent left leg pain and feeling like her leg was weak. She is concerned she may have recurrent DVT. Her vital signs are good. Her EKG has no acute changes. Her exam is more or less benign. She has no calf tenderness. She has symmetric, bilateral, runny trace edema. Lungs with just a few scattered wheezes. Both her [place] criteria for DVT and her revised [place] score for PE allow for d-dimer testing. We will check CBC, BMP, troponin as well. Will obtain chest x-ray. Have contacted dialysis center who leave her chair open for dialysis later today if we can safely discharged from ED. 07:30 - Patient's hemoglobin is fine. White count is also normal. D-dimer is positive so unfortunately we will need to pursue CTA of the chest as well as lower extremity ultrasound. She is due for dialysis today and presuming scan is negative, she will be able to go to dialysis after discharge so dye load is fine. Chemistry and troponin still pending. Medical Records Medical records reviewed: Yes I reviewed the patient's medical records. Lab Data Lab results reviewed: Yes I reviewed the patient's lab results. ECG Data Attestation: I personally reviewed and interpreted this ECG (s) as follows: Prior ECG tracings: not available for review Interpretation: Sinus rhythm at a rate of 65. Left axis. Normal intervals. No ST changes. <Gabrielle Delgado DO - Last Filed: 02/14/19 10:11> 0800 -- Please see Dr. Shah's note for initial presentation and plan. 43-year-old female with history of end-stage renal disease on dialysis, diabetes, hypertension, hyperlipidemia, migraines, schizophrenia and seizures presents with constant shortness of breath and intermittent bilateral leg pain, worse on left, for the past week. She denies any chest pain. She has a history of DVT and was concerned about possible DVT or PE. She had an elevated d-dimer of 5057. Chest x-ray noted a minimal amount of edema and left-sided pleural effusion. EKG noted a rate of 65, sinus with no acute ST-T wave ischemic changes. On exam, she has crackles in her bases bilaterally. Case endorsed to follow-up on labs, bilateral lower extremity Doppler ultrasounds to rule out DVT, as well as CTA chest to rule out PE. If negative, plan is for patient to go directly to dialysis as she is scheduled for her regular session today. 0900 --labs reviewed. Normal white blood cell count. Hemoglobin 11. Potassium 7.3. Creatinine 7.27. Troponin negative. CT chest noted septal thickening compatible with CHF. Respiratory motion artifact degraded the CT chest but no obvious PE was identified. Presentation clinically does not appear consistent with PE and likely more consistent with fluid overload due to end-stage renal disease. 0945 --Doppler ultrasounds negative for DVT. There was a left Wesley's cyst noted. Patient denies any knee pain. Patient needs to go directly to dialysis as treatment for her electrolyte abnormalities today as expected when approaching regularly scheduled dialysis time. Patient denies any acute complaints. She is advised to follow-up with her primary care doctor and return here at any time if worse. HPI <Mega Shah MD - Last Filed: 02/14/19 22:49> General Mode of arrival: EMS . Date/Time Provider Initiated Documentation: 02/14/19 05:35 . Limitations to Documentation: no limitations . Information obtained by: patient, RN notes reviewed and old records reviewed . HPI Narrative: Patient presents to ED by ambulance with complaint of shortness of breath and intermittent left leg pain. She reports having shortness of breath at night. She then recants and states that she has shortness of breath all the time. She reports this occurring for the last week. She denies having chest pain. She denies having fever. She does have a cough but also smokes. She is on dialysis and is due today. She also complains of left leg pain but it is intermittent in nature. She had difficulty getting out of her chair this morning because her leg hurt and felt heavy. She has a prior history of DVT and is afraid she has a recurrent clot. She is a little unreliable historian as her story seems to change with repeated questioning. Related Data Home Medications Medication Instructions Recorded Confirmed aspirin [Aspirin Low-Strength] 81 mg PO DAILY tab-cap 09/19/12 02/14/19 metoprolol succinate 12.5 mg PO BID tab-cap 09/19/12 02/14/19 pioglitazone [Actos] 15 mg PO DAILY tab-cap 09/19/12 02/14/19 trazodone 150 mg PO HS tab-cap 09/19/12 02/14/19 ziprasidone HCl [Geodon] 40 mg PO DAILY AT 4 PM tab-cap 09/19/12 02/14/19 ziprasidone HCl [Geodon] 80 mg PO DIRECTED tab-cap 09/19/12 02/14/19 ammonium lactate 1 applic TOPICAL BID PRN PRN 04/18/17 02/14/19 benztropine 0.5 mg PO BID 04/18/17 02/14/19 docusate sodium [Colace] 100 mg PO BID 04/18/17 02/14/19 hydrocortisone [Proctozone-HC] 1 applic UT BID PRN PRN 04/18/17 02/14/19 omeprazole 20 mg PO DAILY 04/18/17 02/14/19 ziprasidone HCl [Geodon] 120 mg PO HS 04/18/17 02/14/19 Renal Caps 1 mg PO DAILY 09/09/17 02/14/19 calcitriol 0.25 mcg PO TID 10/26/17 02/14/19 multivitamin [Daily Value] 1 ea PO DAILY 10/26/17 02/14/19 sevelamer carbonate [Renvela] 1 tab PO BID 10/26/17 02/14/19 bupropion HCl 100 mg PO BID 02/04/18 02/14/19 simvastatin 40 mg PO QPM 02/04/18 02/14/19 metformin 1,000 mg PO BID 02/08/19 02/14/19 Allergies Allergy/AdvReac Type Severity Reaction Status Date / Time morphine Allergy Itching Unverified 02/08/19 13:34 ciprofloxacin [From Cipro] AdvReac Nausea Unverified 02/08/19 13:34 lisinopril AdvReac Unverified 02/08/19 13:34 BANANAS AdvReac Uncoded 02/08/19 13:34 CABBAGE AdvReac Uncoded 02/08/19 13:34 ORANGES AdvReac Uncoded 02/08/19 13:34 POLLEN AdvReac SLEEPY Uncoded 02/08/19 13:34 General Stated Complaint: RespSymp BRENNA: 3 Review of Systems <Mega Shah MD - Last Filed: 02/14/19 22:49> Narrative: 01/16 Review of Systems completed and is negative except as stated above in HPI (Systems reviewed: Const, Eyes, ENT, Resp, CV, GI, , MSK, Skin, Neuro) PFSH <Mega Shah MD - Last Filed: 02/14/19 22:49> Medical History Auditory hallucinations Diabetes II, w/ unspec. complications End stage renal disease (Inactive) Epilepsy, Unspec., not intractable FX greater tuberosity humerus, L shoulder 09/13 HX of DVT 2005 Hyperlipidemia Hypertention Morbid obesity Psoriasis, other Recurrent hyperkalemia Recurring Depression Psychosis Surgical History Nephrectomy Left, 2000 Surgical procedure, elective (Resolved 02/09/18) dr owens, port-a-cath removal (ESRD) [facility] Social History Smoking/Tobacco Use Status: Current every day Tobacco Type: cigarettes Years smoked: 34 Alcohol Intake: never Drug use: Never Substance use type: does not use Do you feel safe at home: Yes Do you feel safe in your relationship?: Yes Exam <Mega Shah MD - Last Filed: 02/14/19 22:49> Narrative Exam Narrative: Vitals: Afebrile. Elevated blood pressure otherwise normal vital signs and room air pulse oximetry. Const: Obese female in NAD. HEENT: NC/AT. Normal facial exam. Eyes: Normal conjunctiva and sclera. Neck: Supple. Trachea midline. Lungs: Normal respiratory effort. Lungs with just a few scattered wheezes. No rales. Cor: RRR with murmur. Good radial pulses. GI: Soft. NT/ND. No guarding or rebound. Neuro: A+O x 3. CN II - XII grossly in tact. Normal strength, sensation, speech. Ext: No calf tenderness present. Trace brawny edema BLE. Thrill in LUE. Skin: Warm and dry. Course <Mega Shha MD - Last Filed: 02/14/19 22:49> Vital Signs Vital signs: Vital Signs Temperature 97.3 F L 02/14/19 05:35 Pulse 67 02/14/19 05:35 Respiratory Rate 17 02/14/19 05:35 Blood Pressure 153/73 H 02/14/19 05:35 Pulse Oximetry 96 02/14/19 05:35 Temperature 97.3 F L 02/14/19 05:35 Temperature Source Skin 02/14/19 05:35 Pulse 67 02/14/19 05:35 Respiratory Rate 17 02/14/19 05:35 Blood Pressure 153/73 H 02/14/19 05:35 Pulse Oximetry 96 02/14/19 05:35 Oxygen Delivery Method Room Air 02/14/19 05:35 Oxygen Flow Rate 0 02/14/19 05:35 Pain Level 7 02/14/19 05:35 Comment 02/14/19 05:35 Sign Out <Mega Shah MD - Last Filed: 02/14/19 22:49> Sign Out Data: Sign Out Comment: Pending CTA and ultrasound results as well as follow-up of labs. Last updated by Mega Shah MD at 02/14/19 07:50
--- NOTE | 2019-02-14 06:05 | NUR.NOTE ---
ANA Mckinney from home with c/o SOB at night x 1 week and left leg pain. Pt reports hx of DVT, notes left thigh pain and weakness today. No weakness noted on exam. Pt reports 7/10 chest heaviness, SR on monitor. Dialysis pt, due today. call to dialysis center, will hold chair for pt to go when she is DC.
[2019-02-14 06:20] LABS: Absolute Basophil Count 0.05 k/cumm (0.0-0.2); Absolute Eosinophil Count 0.28 k/cumm (0.0-0.7); Absolute Lymphocyte Count 1.07 k/cumm (1.2-3.4); Absolute Monocyte Count 0.79 k/cumm (0.11-0.7); Absolute Neutrophil Count 6.74 k/cumm (1.2-6.7); Basophils % 0.6; Eosinophils % 3.1; HCT 36.4 % (36.0-46.0); HGB 11.3 g/dL (12.0-15.5); Immature Grans % 1.1; Lymphocytes % 11.8; Mean Corpuscular Hemoglobin 32.1 pg (27.0-33.0); Mean Corpuscular Volume 103.4 fL (80-95); Monocytes % 8.7; Neutrophils % 74.7; Platelet Count 210 x1000/uL (130-400); RBC 3.52 m/cumm (4.00-5.20); RBC Distribution Width 16.1 % (11.7-14.6); White Blood Cell Count 9.03 k/cumm (4.4-10.8)
--- NOTE | 2019-02-14 06:39 | DI.VRAD_ITS ---
PROCEDURE INFORMATION: Exam: XR Chest, 2 Views Exam date and time: 02/14/2019 6:32 AM Clinical history: 43 years old, female; Shortness of breath; Patient HX: SOB while lying down TECHNIQUE: Imaging protocol: XR of the chest Views: 2 views. COMPARISON: CR CHEST 2 VIEWS PA,LAT 04/18/2017 11:51 AM FINDINGS: Lungs: Pulmonary vessels are indistinct. Pleural space: Left costophrenic angle is blunted. Heart/Mediastinum: Unremarkable. Heart size within normal limits for technique. Bones/joints: Unremarkable. IMPRESSION: Mild pulmonary edema. Small left pleural effusion. Dictated and Authenticated by: Isael Wheeler MD. Ordering:AKOSUA Ayoub MD
--- NOTE | 2019-02-14 06:40 | DI.RAD_ITS ---
EXAM: XR CHEST 2V PA LATERAL INDICATION: SOB. COMPARISON: CHEST 2 VIEWS PA,LAT from 04/18/2017 TECHNIQUE: 2D digital imaging was performed. FINDINGS: Heart size appears at the upper limits of normal given the AP technique. There is prominence of the pulmonary vasculature. No focal consolidating infiltrates are seen. There is blunting of the left costophrenic angle suggesting a small pleural effusion. No pneumothorax is identified. No acute abnormality is seen in the bones. . IMPRESSION: Findings suspicious for mild pulmonary venous congestion and small left pleural effusion.
[2019-02-14 07:04] LABS: D-Dimer 5057 ng/mlFEU (<500)
--- NOTE | 2019-02-14 07:20 | DI.US_ITS ---
EXAM: US EXTREMITY VENOUS BI CLINICAL HISTORY: leg swelling; + d-dimer; history of clots TECHNIQUE: Bilateral lower extremity venous ultrasound performed using grayscale, color-flow, and sp ectral Doppler analysis. COMPARISON: LEFT EXTREMITY ULTRASOUND from 09/13/2016 FINDINGS: The bilateral common femoral, femoral and popliteal veins demonstrate normal compressibility, augment ation, and color Doppler. The posterior tibial veins are patent. Saphenofemoral junctions are unrema rkable. There is a 3.1 x 0.8 x 2.8 cm simple cyst in the left popliteal fossa consistent with a Bake r cyst. IMPRESSION: Right: Negative for DVT Left: Negative for DVT
[2019-02-14] MEDS: Omnipaque 350 MG/ML 100 ML BTL IJ (07:49)
[2019-02-14] MEDS: Normal Saline Flush 10 ML SYR IVP (07:50)
[2019-02-14] MEDS: Normal Saline - Diluent 50 ML VIAL IV (07:50)
--- NOTE | 2019-02-14 08:10 | DI.CT_ITS ---
EXAM: CT CHEST PE CTA CLINICAL HISTORY: SOB; elevated d-dimer; prior DVT TECHNIQUE: Imaging Protocol: Axial CT angiography was performed with multi-slice acquisition and mu lti-planar and/or 3D reconstructions. CONTRAST MATERIAL: Intravenous: Omnipaque 350 Contrast volume:100 mL contrast route:IV - Oral:No COMPARISON: ABD PELVIS WO CONTRAST from 01/29/2012 FINDINGS: Pulmonary Arteries: No evidence of filling defect to suggest pulmonary emboli. Tracheobronchial tree: Patent where visualized. Mediastinum and Jane: No dominant adenopathy or fluid collection. Pulmonary parenchyma: No consolidation or dominant measurable mass. No architectural distortion. Ther e is some septal thickening. Pleura: No effusion or pneumothorax. Heart/Aorta: No dissection or aneurysm. Cardiomegaly. No evidence of right heart strain or pericard ial effusion. No coronary artery calcifications are seen. Upper abdomen: Unremarkable. IMPRESSION: No evidence of pulmonary embolism, thoracic aortic dissection or aneurysm. Findings suspicious for mild congestive heart failure. DATA REPOSITORY: All CT scans at this facility are submitted to the National Radiology Data Registry (NRDR) Dose Index Registry (DIR) with the [employer] (A[employer]). RADIATION OPTIMIZATION: All CT scans at this facility use at least one of these dose optimization te chniques: automated exposure control; mA and/or kV adjustment per patient size (includes targeted exa ms where dose is matched to clinical indication); or iterative reconstruction.
--- NOTE | 2019-02-14 08:30 | DI.VRAD_ITS ---
PROCEDURE INFORMATION: Exam: CT Angiography Chest With Contrast Exam date and time: 02/14/2019 8:08 AM Clinical history: 43 years old, female; Shortness of breath TECHNIQUE: Imaging protocol: Computed tomographic angiography of the chest with intravenous contrast. 3D rendering: MIP reconstructed images were created and reviewed. COMPARISON: CR XR CHEST 2V PA LATERAL 02/14/2019 6:22 AM FINDINGS: Pulmonary arteries: Respiratory motion artifact degrades the study. No obvious PE identified. If clinical suspicion is high for PE, VQ scan is recommended. Aorta: Unremarkable. No aortic aneurysm. No aortic dissection. Lungs: Septal thickening are compatible with CHF. Pleural space: Unremarkable. No pneumothorax. No pleural effusion. Heart: Cardiomegaly noted Lymph nodes: Unremarkable. No enlarged lymph nodes. Bones/joints: Unremarkable. No acute fracture. Soft tissues: Unremarkable. IMPRESSION: Septal thickening are compatible with CHF. Dictated and Authenticated by: Dago Blankenship MD. Ordering:AKOSUA Ayoub MD
[2019-02-14 08:49] LABS: Anion Gap 9.9 mmol/L (3-11); BUN 40 mg/dL (7-18); CO2 27.1 mmol/L (21.0-32.0); Calcium 8.6 mg/dL (8.5-10.1); Chloride 100 mmol/L (98-107); Estimated GFR 6.08 (mL/min/1.73m2); Glucose 130 mg/dL (70-100); Sodium 137 mmol/L (136-145)
[2019-02-14 08:51] LABS: Troponin I < 0.05 ng/mL (0.00-0.06)
[2019-02-14 08:52] LABS: CREATININE 7.27 mg/dL (0.55-1.02); Potassium 7.3 mmol/L (3.5-5.1)
== END 2019-02-14 10:05 | disposition home or self-care (01) ==
PROVIDERS: Emergency Medicine; Emergency Provider Physician Assistant; PCP Nurse Practitioner Family
DX: R06.02 Shortness of breath (principal); M79.605 Pain in left leg; M79.604 Pain in right leg; N18.6 End stage renal disease; E11.22 Type 2 diabetes mellitus with diabetic chronic kidney disease; I12.0 Hypertensive chronic kidney disease with stage 5 chronic kidney disease or end stage renal disease
CPT/HCPCS: 36415; 71275; 80048; 93005; 99285; 71046; 84484; 85025; 85379; 93010; 93970; J3490